=== PATIENT | female | born 1995 | race African-American/Black ===

== ENCOUNTER 2020-10-07 18:15 | Inpatient (IN) | payer BC, MEDICAID, SELFPAY ==
--- NOTE | 2020-10-07 18:50 | PC.NURSE ---
Discussed with pt and options of either being induced in the AM or repeat section in the AM. Discussed monitoring over night. Pt will discuss with .
[2020-10-07 19:05] VITALS: BP 123/77; PULSE 94; TEMP 36.7
[2020-10-07 19:07] VITALS: BMI 31.4
[2020-10-07] MEDS: CALCIUM CARBONATE (TUMS) 500 MG (200 MG ELEMENTAL) PO (21:53)
[2020-10-08] VITALS (55 sets, daily range): BP systolic 112–150; BP diastolic 63–108; PULSE 50–94; RESP 14–16; TEMP 36.2–37.3; O2SAT 98–100
[2020-10-08 06:04] LABS: Basophils Percent Auto 0.2 % (0.2-1.2); Eosinophils Percent Auto 0.4 % (0-4.4); Hemoglobin 11.6 g/dL (12.0-15.0); Immature Granulocyte Absolute 0.03 K/mm3 (0.00-0.031); Immature Granulocyte Percent A 0.5 % (0-0.5); Lymphocytes Absolute Auto 1.36 K/mm3 (0.9-3.2); Lymphocytes Percent Auto 24.6 % (18.3-44.2); Mean Corpuscular HGB Conc 33.1 g/dl (32-36); Mean Corpuscular Volume 96.7 fl (80-100); Mean Platelet Volume 11.6 fl (7.4-10.4); Monocytes Absolute Auto 0.3 K/mm3 (0.1-0.6); Monocytes Percent Auto 5.6 % (2.6-8.5); Neutrophils Absolute Auto 3.8 K/mm3 (1.3-6.7); Neutrophils Percent Auto 68.7 % (45.5-73.1); Platelet Count Result 191 k/mm3 (150-375); Red Blood Count 3.62 M/mm3 (4.2-5.4); Red Cell Distribution Width 13.7 % (11.5-14.5); White Blood Count 5.5 K/mm3 (4.5-10.0)
[2020-10-08] MEDS: LACTATED RINGERS 1,000 ML 125 ML IV CONT ×2 (06:15→07:05)
[2020-10-08] MEDS: azaTHIOprine 50 MG TABLET PO (06:33)
--- NOTE | 2020-10-08 06:49 | WPDANESEPPF ---
Anes - Initial Pre Proc Eval Procedure: Operation Date: 10/08/20 07:30 Proposed Procedures p Section - Kourtney Huerta MD Date/Time: 10/08/20 06:49 Surgeon: Kourtney Huerta MD Pre Op Diagnosis: Extended Monitoring Patient Data Age: 25 Gender: F Height: 1.63 m Weight: 83 kg Last Vital Signs Temp 36.7 C 10/07/20 19:05 Pulse 82 10/08/20 06:45 BP 127/79 10/08/20 06:45 Allergies Allergy/AdvReac Type Severity Reaction Status Date / Time No Known Allergies Allergy Verified 10/07/20 19:31 Home Medications Medication Instructions Recorded Confirmed Type Vitamin 1 tablet DAILY 10/07/20 10/07/20 History aspirin 81 mg PO DAILY 10/07/20 10/07/20 History azathioprine 50 mg PO DAILY 10/07/20 10/07/20 History ergocalciferol (vitamin D2) 50,000 unit PO DAILY 10/07/20 10/07/20 History hydroxychloroquine 400 mg PO DAILY 10/07/20 10/07/20 History prednisone 10 mg PO DAILY 10/07/20 10/07/20 History valacyclovir 1,000 mg PO DAILY 10/07/20 10/07/20 History Laboratory Tests 10/08/20 10/08/20 05:56 05:56 WBC 5.5 K/mm3 K/mm3 (4.5-10.0) RBC 3.62 M/mm3 L M/mm3 (4.2-5.4) Hgb 11.6 g/dL L g/dL (12.0-15.0) Hct 35.0 % L % (37.0-47.0) MCV 96.7 fl fl (80-100) MCH 32.0 pg pg (26-34) MCHC 33.1 g/dl g/dl (32-36) RDW 13.7 % % (11.5-14.5) Plt Count 191 k/mm3 k/mm3 (150-375) MPV 11.6 fl H fl (7.4-10.4) Immature Gran % (Auto) 0.5 % % (0-0.5) Neut % (Auto) 68.7 % % (45.5-73.1) Lymph % (Auto) 24.6 % % (18.3-44.2) [place] % (Auto) 5.6 % % (2.6-8.5) Eos % (Auto) 0.4 % % (0-4.4) Baso % (Auto) 0.2 % % (0.2-1.2) Lymph # (Auto) 1.36 K/mm3 K/mm3 (0.9-3.2) [place] # (Auto) 0.3 K/mm3 K/mm3 (0.1-0.6) Eos # (Auto) 0.0 K/mm3 K/mm3 (0-0.3) Baso # (Auto) 0.0 K/mm3 K/mm3 (0.0-0.1) Abs Immat Gran (auto) 0.03 K/mm3 K/mm3 (0.00-0.031) Absolute Neuts (auto) 3.8 K/mm3 K/mm3 (1.3-6.7) Absolute Nucleated RBC 0.0 K/mm3 K/mm3 (0.0-0.012) Nucleated RBC % 0.0 % % (0.0-0.2) RPR Pending Patient hx anesthesia problems: none Family hx anesthesia problems: none [facility] Past Medical History Medical History (Updated 10/08/20 @ 06:51 by Ryan Fontana MD) Lupus (systemic lupus erythematosus) Obesity Social History Social History Smoking status: Never smoker Gender identity (if verbalized by the patient): Female Sexual Orientation (if Verbalized by the Patient): Straight or Heterosexual Spiritual care concerns: No Anes - Eval Final PreProcedure Day of Procedure 10/08/20 06:49 Patient weight: obese Heart: regular rate and rhythm Lungs: clear to auscultation and normal air movement Airway: Mallampati scale class II Neurological: alert and oriented Last oral intake: >/= 8 hours ASA classification: III Emergent: no Anesthetic plan: proceed Anesthesia type and monitoring: regional spinal Informed Consent: The patient's anesthetic plan and its attendant risks and benefits were discussed with the patient/family/POA. Questions were solicited and answers provided to the satisfaction of the patient/family/POA.
[2020-10-08] MEDS: methylPREDNISolone SOD SUCC 125 MG VIAL IV PUSH (07:02)
--- NOTE | 2020-10-08 07:27 | PM.IMHP ---
H&P: HPI History of Present Illness Date/Time: 10/08/20 07:27 Chief Complaint: small baby on ultrasound Narrative: Summer Gudino is a 25 year old female @ 37 5/7 weeks by lmp c/w u/s for an EDC of . complicated by SLE with exacerbation times two this .Patient seen and comanged by MFM and recommendation to deliver secondary IUGR and noncompliance with testing and ultrasounds. Patient also had a prior csection. Patient reports movement and denies contractions Review of Systems Review of Systems: All systems reviewed & are unremarkable except as noted in HPI and below PMFSH Past Medical History Medical History (Updated 10/08/20 @ 07:32 by Jacobo Panchal MD) IUGR (intrauterine growth restriction) Lupus (systemic lupus erythematosus) Obesity Surgical History Surgical History (Updated 10/08/20 @ 07:32 by Jacobo Panchal MD) History of section, low transverse Social History Social History Smoking status: Never smoker Gender identity (if verbalized by the patient): Female Sexual Orientation (if Verbalized by the Patient): Straight or Heterosexual Spiritual care concerns: No Meds Home Medications and Allergies Home Medications Medication Instructions Recorded Confirmed Type Vitamin 1 tablet DAILY 10/07/20 10/07/20 History aspirin 81 mg PO DAILY 10/07/20 10/07/20 History azathioprine 50 mg PO DAILY 10/07/20 10/07/20 History ergocalciferol (vitamin D2) 50,000 unit PO DAILY 10/07/20 10/07/20 History hydroxychloroquine 400 mg PO DAILY 10/07/20 10/07/20 History prednisone 10 mg PO DAILY 10/07/20 10/07/20 History valacyclovir 1,000 mg PO DAILY 10/07/20 10/07/20 History Allergies Allergy/AdvReac Type Severity Reaction Status Date / Time No Known Allergies Allergy Verified 10/07/20 19:31 Vital Signs Vital Signs - 24 hr 10/07/20 19:05 10/08/20 06:36 10/08/20 06:45 Temperature 36.7 C Pulse Rate 94 89 82 Blood Pressure 123/77 132/75 127/79 10/08/20 07:00 Temperature Pulse Rate 94 Blood Pressure 112/92 H Exam Const: General: no acute distress Resp: Effort & Inspection: normal respiratory effort GI: Other: abdomen soft and gravid : OB/external & speculum: Deferred OB/external & speculum exam H&P: Results Labs Labs: Short CBC 10/08/20 Range/Units 05:56 WBC 5.5 (4.5-10.0) K/mm3 Hgb 11.6 L (12.0-15.0) g/dL Hct 35.0 L (37.0-47.0) % Plt Count 191 (150-375) k/mm3 Assessment and Plan Assessment and plan (1) IUGR (intrauterine growth restriction): Status: Acute Assessment and Plan: Plan repeat csection. FWB reassuring. (2) History of section, low transverse: Code(s): Z98.891 - History of uterine scar from previous surgery Status: Acute (3) Lupus (systemic lupus erythematosus): Code(s): M32.9 - Systemic lupus erythematosus, unspecified Status: Acute Assessment and Plan: prior exacerbations and currently on steroids.
--- NOTE | 2020-10-08 07:35 | WPDHPUPDATE1 ---
History and Physical Update Update Date/Time: 10/08/20 07:35 History and Physical has been reviewed, including an updated exam of the patient. There are NO changes in the patient's condition. Risks, benefits, and alternatives have been discussed and questions answered. Patient agrees to proceed with procedure.
[2020-10-08] MEDS: OXYTOCIN 30 UNITS/NS 500 ML 30 UNITS/500 ML BAG 125 UNITS IV CONT (09:48)
[2020-10-08] MEDS: KETOROLAC 30 MG/ML VIAL (*BKC) IV PUSH ×2 (12:08→19:24)
[2020-10-08] MEDS: ONDANSETRON INJ 4 MG/2 ML VIAL IV PUSH ×2 (12:09→19:24)
--- NOTE | 2020-10-08 12:25 | P.PCNOB_ITS ---
OB - Delivery Note Procedure Delivery date: 10/08/20 Procedure: Procedures Operation Date: 10/08/20 07:30 Actual Procedures Side Surgeon p Section Jacobo Panchal MD events: Lupus Intrapartal events: None Delivery monitor: external FHT and external uterine Route of delivery: Quantitative Blood Loss (ml): 350 Anesthesia type: Spinal Disposition: PACU [place] Baby Date of : 10/08/20 Time of : 08:01 Weeks of gestation at delivery: 37 gender: Female Weight (pounds): 6 Weight (ounces): 1 presentation: vertex position: Left Occiput Anterior Placenta delivery description: Spontaneous cord vessel description: 3 Vessels score one minute: 8 score five minutes: 9
--- NOTE | 2020-10-08 12:27 | PM.PROC ---
Procedure Note - Detailed Date of procedure: 10/08/20 Pre-op diagnosis: Extended Monitoring iugr Post-op diagnosis: same Procedure performed: repeat LTCS, scar revision Description of procedure: Patient was taken to the operating room with IV running. She was prepped and draped in a normal sterile fashion and placed in a supine position with a leftward tilt. Allis clamps were used to grasp the prior and has keloid incision this incision was transected and removed. The incision was then carried down to the underlying layer of fascia. The fascia was excised bilaterally with Huitron scissors. The superior aspect of incision was grasped with Krishna clamps and dissected off the muscle. The inferior aspect of this incision was grasped with Krishna clamps and dissected off the rectus muscles. Rectus muscles were in the midline. Bladder blade was inserted. The vesicouterine peritoneum was grasped with pickups and entered sharply with Metzenbaum scissors with the bladder flap created digitally. Bladder blade was reinserted and lower uterine segment was incised in a transverse fashion. The uterus incision was extended bluntly the fetus was delivered atraumatically cord blood was obtained for blood gases were obtained the placenta delivered spontaneously. The uterus was exteriorized and cleared of all clots and debris. Uterine incision was then closed with 0 Monocryl in a running locked fashion with 2nd layer of the same suture was imbricate this incision. The uterus was returned to the abdomen gutters were irrigated and cleared of all clots and debris. Uterine incision was then covered with Interceed in a T-fashion. Muscles were examined and hemostasis noted fascia was closed with Ol Vicryl suture. Subcutaneous tissue was irrigated and closed with 3 0 plain gut. And skin was closed with 0 Vicryl in a Alfredo needle sponge lap and needle counts were correct x2 patient received 2 g Ancef prior to skin incision. Anesthesia: spinal Surgeon: Jacobo Panchal MD Estimated blood loss (mL): 350 Urine output (mL): 200 Drains: Yes Packing: No Pathology: yes Complications: None Condition: stable Disposition: PACU Findings: female, vertex, clear fluid
--- NOTE | 2020-10-08 12:31 | PC.NURSE ---
Consulted with patient, reviewed feeding cues, frequencies, duration of feedings, feeding elimination flow sheet, and signs of adequate intake. Demonstrated stimulation techniques to wake for feeding. Assisted with to breast. Reviewed positioning/alignment, holding breast and asymmetrical latch on. was able to latch correctly. Infant nursed eagerly, with steady draws and frequent swallowing noted. Reviewed signs of a correct latch, effective nursing and suck swallow ratio. was able to maintain latch without discomfort to mother. Nipple care reviewed. Instructed mother to call out for RN assistance if she is unable to latch for feeding or she has discomfort with nursing. Instructed feeding should be initiated three hours from start of last feeding or if feeding cues are noted before. Mother voiced understanding of information shared.
[2020-10-08] MEDS: diphenhydrAMINE HCl INJ 50 MG/ML VIAL 12.5 MG IV PUSH (13:21)
[2020-10-08] MEDS: DEXTROSE 5%/0.45% SOD CHL 1,000 ML 125 ML IV CONT (14:01)
[2020-10-08 14:27] LABS: Rapid Plasma Reagin Non-Reactive (NonReactive)
--- NOTE | 2020-10-08 15:50 | PC.NURSE ---
At bedside assisting to breast, when unwrapped noted to be shaking her arms and legs. Primary RN given report. Blood sugar done with result of 45. to breast after blood sugar. was able to latch correctly. Infant nursed eagerly, with steady draws and frequent swallowing noted. Reviewed signs of a correct latch, effective nursing and suck swallow ratio. was able to maintain latch without discomfort to mother. Instructed mother to call out for RN assistance if she is unable to latch for feeding or she has discomfort with nursing. Instructed feeding should be initiated three hours from start of last feeding or if feeding cues are noted before. Mother voiced understanding of information shared.
[2020-10-09] MEDS: KETOROLAC 30 MG/ML VIAL (*BKC) IV PUSH (02:00)
[2020-10-09 04:10] VITALS: BP 115/67; PULSE 71; RESP 13; TEMP 36.7; O2SAT 99
[2020-10-09 05:51] LABS: Basophils Percent Auto 0.1 % (0.2-1.2); Hematocrit 29.4 % (37.0-47.0); Hemoglobin 9.7 g/dL (12.0-15.0); Immature Granulocyte Absolute 0.05 K/mm3 (0.00-0.031); Immature Granulocyte Percent A 0.5 % (0-0.5); Lymphocytes Absolute Auto 1.35 K/mm3 (0.9-3.2); Lymphocytes Percent Auto 13.8 % (18.3-44.2); Mean Corpuscular Hemoglobin 31.9 pg (26-34); Mean Corpuscular Volume 96.7 fl (80-100); Mean Platelet Volume 12.6 fl (7.4-10.4); Monocytes Absolute Auto 0.6 K/mm3 (0.1-0.6); Monocytes Percent Auto 5.9 % (2.6-8.5); Neutrophils Absolute Auto 7.8 K/mm3 (1.3-6.7); Neutrophils Percent Auto 79.7 % (45.5-73.1); Platelet Count Result 165 k/mm3 (150-375); Red Blood Count 3.04 M/mm3 (4.2-5.4); Red Cell Distribution Width 13.8 % (11.5-14.5); White Blood Count 9.8 K/mm3 (4.5-10.0)
[2020-10-09 07:00] VITALS: BP 121/73; PULSE 85; RESP 16; TEMP 36.8; O2SAT 99
[2020-10-09] MEDS: IBUPROFEN 600 MG TABLET PO ×3 (07:23→20:29)
[2020-10-09] MEDS: POLYSACCHARIDE IRON COMPLEX 150 MG CAPSULE PO ×2 (09:53→16:43)
[2020-10-09] MEDS: MULTIVIT/MIN/PREN/FOL AC/IRON TABLET 1 TAB PO (09:53)
[2020-10-09] MEDS: DOCUSATE SODIUM 100 MG CAPSULE PO ×2 (09:53→16:43)
--- NOTE | 2020-10-09 09:53 | WPDANLDNPN2 ---
Anes-Prog Note L&D-Neuraxial Date/Time: 10/09/20 09:53 Neuraxial medications: intrathecal PF morphine Opiod-related complaints: none Patient feedback: Patient satisfied with post-operative pain management.
--- NOTE | 2020-10-09 09:53 | WPDANLDPN2 ---
Anes-Prog Note L&D Date/Time: 10/09/20 09:53 Comfortable throughout: section Neuraxial method: spinal Epidural/Spinal procedure site: clean & non-tender Neuro status: Neuro function grossly intact. Cardiovascular status: normal Respiratory status: normal Airway patency: baseline Mental status: baseline Post-Op hydration status: normal Vital Signs: Last Vital Signs Temp 36.7 C 10/09/20 04:10 Pulse 71 10/09/20 04:10 Resp 13 10/09/20 04:10 BP 115/67 10/09/20 04:10 Pulse Ox 99 10/09/20 04:10 Pain score (VAS): 09/26 I/O: Intake & Output 10/08/20 10/09/20 10/09/20 23:59 07:59 15:59 Intake Total 690 900 Output Total 1590 975 Balance -900 -75 Post-procedural complaints: none Patient feedback: Patient satisfied with anesthetic care.
[2020-10-09] MEDS: HYDROXYCHLOROQUINE SULFATE 200 MG TABLET 400 MG PO (09:55)
[2020-10-09] MEDS: predniSONE 10 MG TABLET PO (09:55)
[2020-10-09] MEDS: azaTHIOprine 50 MG TABLET PO (09:56)
[2020-10-09] MEDS: HYDROcodone/acetaminophen (*CRX) 5-325 MG TABLET 1 TAB PO ×2 (13:29→16:44)
--- NOTE | 2020-10-09 16:33 | P.PNOB_ITS ---
OB - PN: Subj Subjective Date/time seen: 10/09/20 16:33 Patient doing well no complaints pain controlled bleeding minimal OB - PN: Obj Data Labs CBC & Chem 7: 10/09/20 04:22 Labs: Laboratory Results - last 24 hr 10/09/20 04:22 WBC 9.8 RBC 3.04 L Hgb 9.7 L Hct 29.4 L MCV 96.7 MCH 31.9 MCHC 33.0 RDW 13.8 Plt Count 165 MPV 12.6 H Immature Gran % (Auto) 0.5 Neut % (Auto) 79.7 H Lymph % (Auto) 13.8 L [place] % (Auto) 5.9 Eos % (Auto) 0.0 Baso % (Auto) 0.1 L Lymph # (Auto) 1.35 [place] # (Auto) 0.6 Eos # (Auto) 0.0 Baso # (Auto) 0.0 Abs Immat Gran (auto) 0.05 H Absolute Neuts (auto) 7.8 H Absolute Nucleated RBC 0.0 Nucleated RBC % 0.0 OB - PN A/P Assessment and Plan (1) History of section, low transverse: Code(s): Z98.891 - History of uterine scar from previous surgery Status: Acute Assessment and Plan: continue with postop care. (2) IUGR (intrauterine growth restriction): Status: Acute Assessment and Plan: s/p post delivery (3) Lupus (systemic lupus erythematosus): Code(s): M32.9 - Systemic lupus erythematosus, unspecified Status: Acute Assessment and Plan: continue with scheduled medications Time Spent With Patient Time: Total time spent is greater than 50% in coordination of care (as documented) at patient's floor/unit and/or counseling patient: Exam : Other: Adomen soft uterus below umbilicus incision bandage
[2020-10-09 19:00] VITALS: BP 123/76; PULSE 78; RESP 16; TEMP 36.8; O2SAT 99
[2020-10-09] MEDS: HYDROcodone/acetaminophen (*CRX) 10-325 MG TABLET 1 TAB PO (20:28)
[2020-10-09] MEDS: oxyCODONE/ACETAMINOPHEN (*CRX) 5-325 MG TABLET 1 TABLET PO (23:19)
--- NOTE | 2020-10-10 02:03 | PC.NURSE ---
10/09/2020 @ 2200 Patient viewed the discharge video Mother & Baby Care, The First Two Weeks . Patient was given the opportunity and encouraged to ask questions. Patient verbalized understanding of information shared and has been given the mother/baby guide for home reference.
[2020-10-10] MEDS: oxyCODONE/ACETAMINOPHEN (*CRX) 5-325 MG TABLET 1 TABLET PO ×3 (02:27→08:53)
[2020-10-10] MEDS: IBUPROFEN 600 MG TABLET PO ×2 (02:27→08:52)
[2020-10-10] MEDS: POLYSACCHARIDE IRON COMPLEX 150 MG CAPSULE PO (08:51)
[2020-10-10] MEDS: DOCUSATE SODIUM 100 MG CAPSULE PO (08:52)
[2020-10-10] MEDS: MULTIVIT/MIN/PREN/FOL AC/IRON TABLET 1 TAB PO (08:52)
[2020-10-10 08:55] VITALS: BP 125/69; PULSE 95; RESP 16; TEMP 36.8; O2SAT 98
[2020-10-10] MEDS: predniSONE 20 MG TABLET PO (08:55)
[2020-10-10] MEDS: HYDROXYCHLOROQUINE SULFATE 200 MG TABLET 400 MG PO (08:55)
[2020-10-10] MEDS: azaTHIOprine 50 MG TABLET PO (08:56)
--- NOTE | 2020-10-10 11:52 | P.PNOB_ITS ---
OB - PN: Subj Subjective Date/time seen: 10/10/20 11:52 doing well no complaints OB - PN: Obj Data Labs CBC & Chem 7: 10/09/20 04:22 OB - PN A/P Assessment and Plan (1) History of section, low transverse: Code(s): Z98.891 - History of uterine scar from previous surgery Status: Acute Assessment and Plan: d/c home with pp care. (2) Lupus (systemic lupus erythematosus): Code(s): M32.9 - Systemic lupus erythematosus, unspecified Status: Acute Time Spent With Patient Time: Total time spent is greater than 50% in coordination of care (as docu mented) at patient's floor/unit and/or counseling patient: Exam GI: Other: ff below umbilicus incision clean and dry intact
[2020-10-11 08:43] VITALS: BP 120/80; PULSE 91; RESP 20; TEMP 37.1; O2SAT 100
--- NOTE | 2020-10-18 20:59 | PM.OBDSVD ---
DS: Admitting Diagnosis Admitting Diagnosis Admitting Diagnosis: IUGR DS: Discharge Diagnosis Discharge Diagnosis (1) IUGR (intrauterine growth restriction): Status: Acute (2) History of section, low transverse: Code(s): Z98.891 - History of uterine scar from previous surgery Status: Acute (3) Lupus (systemic lupus erythematosus): Code(s): M32.9 - Systemic lupus erythematosus, unspecified Status: Acute OB - DS: Summary OB Procedures : NST and Ultrasound OB Procedures Intrapartum: low cervical, transverse OB Procedures: : None Peripartum Data Procedures: Procedures Operation Date: 10/08/20 07:30 Actual Procedures Side Surgeon p Section Jacobo Panchal MD Time Spent with Patient Time attestation: Total time spent providing and/or coordinating discharge services: DS: Data Data Completed and Pending Completed studies during hospitalization: Pending at discharge 10/08/20 08:03 Surgical [PTH] Routine Discharge Plan Discharge Attending physician on discharge: Jacobo Panchal Consulting providers: Ryan Fontana Discharging Clinician: Jacobo Panchal Patient Disposition: Home, Self-Care Activity: may drive after 2 weeks and pelvic rest Diet: as tolerated Discharge Instructions: Education: Mom and Baby Guide Given to: Mother Follow-Up: Call your delivering provider's office for an appointment to be seen in: 1 and 4 weeks [facility] baby [facility] the follow-up appointment. Appointment Date/Time: Sunday10-11-2020 at 8:00 am Call [phone] if you are unable to keep your appointment time. BREAST CARE: * Wear a snug supportive bra. * For engorgement discomfort: Breast Feeding: * Apply warm moist washcloths * Express milk as needed to relieve engorgement * Wear loose clothing * For sore nipples: * Identify correct latch-on * Apply warm moist washcloths before and after nursing * Air dry nipples after nursing * May apply Lansinoh cream to nipples ABDOMINAL INCISION: (if applicable) * Allow incision to air dry * Do NOT use lotions for powders on your incision * When showering, allow soap and water to run over the incision, but do not wash incision PERINEAL CARE: * Until bleeding stops, use your karen bottle after urinating * Change your pad frequently throughout the day * You may take sitz baths several times a day (fill your bathtub with warm water and soak for 20 minutes.) Do NOT bathe in the water * No tub baths until seen by your physician - You may shower ACTIVITY: * Rest as much as possible. * Do not exercise or lift anything heavier than your baby (such as laundry or other children.) * Avoid stairs or driving as much as possible. * Do not put anything into the vagina. No douching, tampons, or sexual activity until seen by physician. NOTIFY PHYSICIAN IF YOU HAVE ANY QUESTIONS OR IF ANY OF THE FOLLOWING SYMPTOMS OCCUR: * If your episiotomy or incision becomes red, swollen, or more painful than what you have experienced in the hospital. * If your vaginal bleeding becomes foul smelling. * If your vaginal bleeding becomes more heavy than a period or if your bleeding changes from pink to bright red. However, you may pass an occasional walnut-sized clot once or twice for the first week . * If you experience a sharp, shooting pain in you calves. * If you discover a hard, reddened area on your breast or if you experience flu-like symptoms. DIET: * Eat regular, well-balanced meals. * Drink plenty of fluids daily. If , drink to thirst. Follow-up/Referrals: Jacobo Panchal MD [Physician] - Discharge Medications: New prednisone 20 mg Tablet 20 mg PO DAILY Qty: 30 RF: 0 oxycodone-acetaminophen 5-325 mg Tablet 1 tablet P
== END 2020-10-10 14:00 | disposition home or self-care (01) | DRG 788 ==
LOC: ANHOBPP 10-08 02:14 → ANHOB2 10-10 11:04 → ANHLDR 10-12 12:54 → ANHOB2 10-12 12:54 → ANHOBPP 10-12 12:54
PROVIDERS: Admitting Provider Obstetrics & Gynecology Gynecology; Visit Provider Obstetrics & Gynecology
PROC: 10D00Z1 Extraction of Products of Conception, Low, Open Approach (ICD-10-PCS; CPT 59514; principal; 2020-10-08 07:30)
DX: O99.12 Other diseases of the blood and blood-forming organs and certain disorders involving the immune mechanism complicating childbirth (principal); O36.5930 Maternal care for other known or suspected poor fetal growth, third trimester, not applicable or unspecified; Z3A.37 37 weeks gestation of pregnancy; Z37.0 Single live birth; M32.9 Systemic lupus erythematosus, unspecified
CPT/HCPCS: 36415; 85025; 86592; 86850; 86900; 86901; 88307; A9270; J0131; J1200; J1885; J2274; J2405; J2590; J2930; J7120; J7512